=== PATIENT | male | born 1990 | race Hispanic/Latino ===

== ENCOUNTER 2024-09-01 23:47 | Emergency (ER) | payer SELFPAY ==
--- OUTSIDE RECORDS SUMMARY | 2024-09-01 23:50 | XMS REPORT | Continuity of Care Document ---
Author Name Unknown Address [address] [facility] [address] [id number] [facility] thconnect Address [address] [facility] [address] [place] [address] Care Team Providers Care Illustrator Set Name Role Phone Unavailable Unavailable Unavailable Encounters Start Date/Time End Date/Time Encounter Type Admission Type Attending Clinicians [facility] Facility Care Department Encounter ID Source 2024-07-05 13:34:12 2024-07-05 13:34:12 Outpatient [facility] 09 Ray Garza Gerry 2024-06-28 13:49:51 2024-06-28 13:49:51 Outpatient [facility] [id number] Ray Garza Gerry 2024-06-17 13:46:40 2024-06-17 13:46:40 Outpatient [facility] [id number] Ray Garza Gerry 2024-06-14 14:48:40 2024-06-14 14:48:40 Outpatient [facility] [id number] Ray Garza Gerry 2024-06-07 15:36:54 2024-06-07 15:36:54 Outpatient [facility] [id number] Ray Garza Gerry Results Test Description Test Time Test Comments Results Result Co mments Source CULTURE, URINE 2024-06-10 09:19:57 SPECIMEN NUMBER: [id number] CULTURE, URINE SPECIMEN NUMBER: [id number] SPECIMEN COMMENT: URINE SOURCE: URINE REPORT STATUS: FINAL FINAL REPORT: 06/10/2024 NO GROWTH HERPES SIMPLEX AB, [id number] 13:16:09* Test Item Value Reference Range Interpretation Comme nts HERPES SIMPLEX AB, IgM (test code = 62761) 0.47 INDEX SEE BELOW INTERPRETATION U NITS RANGE ----- ----- NEGATIVE INDEX <=0.89 EQUIVOCAL INDEX 0.90-1.09 POSITIVE INDEX >=1.10 AFP, TUMOR [id number] 05:49:54* Test Item Value Reference Range Interpretation Comme nts AFP, TUMOR MARKER (test code = 92318) 2.95 NG/ML <=8.30 UNLESS OTHERWISE INDICATED, ALL TESTING PERFORMED AT [facility] [address] [place] [address] LOAN INSPECTOR: YAHAIRA TELLO M.D. [place] NUMBER [id number] [facility] [place] [id number] HIV 1/2 4TH GEN, RFLX [id number] 03:41:22* Test Item Value Reference Range Interpretation Comme nts HIV 1/2 4TH GEN, RFLX CONF ( test code = 3514) NON-REACTIVE NON-REACTIVE HERPES SIMPLEX 1/2 AB, IgG [id number] 03:41:22* Test Item Value Reference Range Interpretation Comme nts HERPES SIMPLEX 1 AB, IgG (test code = 04522) 0.072 INDEX SEE BELOW INTERPRETATION U NITS RANGE ----- ----- NON-REACTIVE INDEX <1.000 REACTIVE INDEX >=1.000 HERPES SIMPLEX 2 AB, IgG (test code = 17569) 0.087 INDEX SEE BELOW INTERPRETATION U NITS RANGE ----- ----- NON-REACTIVE INDEX <1.000 REACTIVE INDEX >=1.000 [id number] 03:09:06* Test Item Value Reference Range Interpretation Comme nts RPR RESULT (test code = 3501) NON-REACTIVE NON-REACTIVE RPR TITER (test code = 3500) NOT INDIC. TITER NOT INDIC.
--- NOTE | 2024-09-02 00:02 | ER ---
Nurse's Notes [facility] Name: Sundeep Paz Age: 34 yrs Sex: Male : 1990 Arrival Date: 09/01/2024 Time: 23:47 Bed Waiting Private MD: Diagnosis: Otitis media, unspecified, left ear;Other otitis externa, left ear Presentation: 09/01 23:58 Chief complaint: Patient states: left ear pain X2 days. Coronavirus screen: Client kl denies travel out of the [place] in the last 14 days. At this time, the client does not indicate any symptoms associated with coronavirus-19. Ebola Screen: No symptoms or risks identified at this time. Initial Sepsis Screen: Does the patient meet any 2 criteria? No. Patient's initial sepsis screen is negative. Does the patient have a suspected source of infection? No. Patient's initial sepsis screen is negative. Risk Assessment: Do you want to hurt yourself or someone else?. Onset of symptoms was September 01, 2020. 23:58 Method Of Arrival: Ambulatory 23:58 Acuity: JAYE 5 kl Triage Assessment: 09/02 00:01 General: Appears in no apparent distress. uncomfortable, Behavior is anxious, fussy, kl restless. Pain: Complains of pain in left ear Pain does not radiate. EENT: Tympanic membrane reddened on left ear. Neuro: Floyd Agitation-Sedation Scale (RASS): +1 Restless Level of Consciousness is awake, alert, obeys commands, Oriented to person, place, time, situation. Cardiovascular: No deficits noted. Denies chest pain, shortness of breath, Capillary refill < 3 seconds Clubbing of nail beds is absent JVD is absent Patient's skin is warm and dry. Respiratory: No deficits noted. Airway is patent Respiratory effort is even, unlabored, Respiratory pattern is regular, symmetrical. GI: No deficits noted. No signs and/or symptoms were reported involving the gastrointestinal system. : No deficits noted. No signs and/or symptoms were reported regarding the genitourinary system. Derm: No deficits noted. No signs and/or symptoms reported regarding the dermatologic system. Skin is intact, is healthy with good turgor, Skin is dry, Skin is normal, Skin temperature is warm. Musculoskeletal: No deficits noted. No signs and/or symptoms reported regarding the musculoskeletal system. Circulation, motion, and sensation intact. Range of motion: intact in all extremities. Historical: - Allergies: 00:01 No Known Allergies; kl - Home Meds: 00:01 None [Active]; kl - PMHx: 00:01 None; kl - PSHx: 00:01 None; kl - Immunization history:: Adult Immunizations up to date. - Infectious Disease History:: Denies. - Social history:: Smoking status: Reported history of juuling and/or vaping. Patient uses alcohol, on a daily basis. Patient/guardian denies using street drugs. Screenin:03 [facility] ED Fall Risk Assessment (Adult) History of falling in the last 3 months, including since admission No falls in past 3 months (0 pts) Confusion or Disorientation No (0 pts) Intoxicated or Sedated No (0 pts) Impaired Gait No (0 pts) Mobility Assist Device Used No (0 pt) Altered Elimination No (0 pt) Score/Fall Risk Level 0 - 2 = Low Risk Oriented to surroundings, Maintained a safe environment, Educated pt \T\ family on fall prevention, incl call for assistance when getting out of bed, Assessed \T\ reinforced patient's understanding of fall precautions. Abuse screen: Denies threats or abuse. Denies injuries from another. Nutritional screening: No deficits noted. Tuberculosis screening: No symptoms or risk factors identified. Assessment: 00:03 General: see triage assessment. Vital Signs: 09/01 23:58 BP 170 / 94; Pulse 101; Resp 18 S; Temp 97.5(O); Pulse Ox 98% on R/A; Weight 81.65 kg (R); Height 5 ft. 9 in. (R); Pain 08/12; 23:58 Body Mass Index 26.58 (81.65 kg, 175.26 cm) 23:58 Pain Scale: Adult ED Course: 23:51 Patient arrived in ED. gm2 23:58 Mckenzie Choe FNP-C [facility]. kb 23:58 Arturo Kaye MD is Attending Physician. kb 09/02 00:01 Triage completed. kl 00:01 Arm band placed on right wrist. kl 00:03 Patient has correct armband on for positive identification. Family accompanied patient. kl 00:11 No provider procedures requiring assistance completed. Patient did not have IV access kl during this emergency room visit. Administered Medications: 00:10 Drug: HYDROcodone-acetaminophen PO 5 mg-325 mg 1 tabs PO once Route: PO; 00:10 Follow up: Response: No adverse reaction; Medication administered at discharge. 00:10 Drug: Amoxicillin-Clavulanate PO 875 mg PO once Route: PO; 00:10 Follow up: Response: No adverse reaction; Medication administered at discharge. Medication: 00:03 VIS not applicable for this client. Outcome: 00:01 Discharge ordered by . katharina 00:11 Discharged to home ambulatory, with family, 00:11 Condition: stable 00:11 Discharge instructions given to patient, Instructed on discharge instructions, follow up and referral plans. medication usage, Demonstrated understanding of instructions, follow-up care, medications, Prescriptions given X 2, 00:11 Patient left the ED. Signatures: Mckenzie Choe, TIMBER CRUISER-C GERTRUDE-Shara Hanks RN RN Ana Holman 2
--- NOTE | 2024-09-02 00:02 | EDPHYS ---
Physician Documentation [facility] Name: Sundeep Paz Age: 34 yrs Sex: Male : 1990 Arrival Date: 09/01/2024 Time: 23:47 Bed Waiting Private MD: ED Physician Arturo Kaye HPI: 09/02 00:16 This 34 yrs old Male presents to ER via Ambulatory with complaints of Ear kb Pain, Foreign Body In Ear. 00:16 Pt is a 34 year old female who presents for left ear pain that started yesterday. kb Denies fever. Aggravated by movement of ear. Denies drainage. Historical: - Allergies: 00:01 No Known Allergies; kl - Home Meds: 00:01 None [Active]; kl - PMHx: 00:01 None; kl - PSHx: 00:01 None; kl - Immunization history:: Adult Immunizations up to date. - Infectious Disease History:: Denies. - Social history:: Smoking status: Reported history of juuling and/or vaping. Patient uses alcohol, on a daily basis. Patient/guardian denies using street drugs. ROS: 00:14 Constitutional: As per HPI kb Exam: 00:14 Constitutional: This is a well developed, well nourished patient who is awake, alert, kb and in no acute distress. Head/Face: Normocephalic, atraumatic. Respiratory: Respirations even and unlabored. No increased work of breathing. Talking in full sentences Skin: Warm, dry with normal turgor. Normal color. MS/ Extremity: Pulses equal, no cyanosis. Neurovascular intact. Full, normal range of motion. Neuro: Awake and alert, GCS 15, oriented to person, place, time, and situation. 00:14 ENT: External ear(s): pain with movement, that is moderate, of the pinna of left ear, left ear lobe and left ear canal, Ear canal(s): erythema, that is moderate, of the left canal, TM's: fluid levels, on the left, Vital Signs: 09/01 23:58 BP 170 / 94; Pulse 101; Resp 18 S; Temp 97.5(O); Pulse Ox 98% on R/A; Weight 81.65 kg kl (R); Height 5 ft. 9 in. (R); Pain 10/10; 23:58 Body Mass Index 26.58 (81.65 kg, 175.26 cm) kl 23:58 Pain Scale: Adult MDM: 23:58 Medical Screening Exam initiated kb 09/02 00:15 Differential diagnosis: otitis media, otitis externa, ruptured TM, foreign body, acute kb otalgia. Data reviewed: vital signs, nurses notes. Historians other than the Patient: Family Member: family. Counseling: I had a detailed discussion with the patient and/or guardian regarding the historical points, exam findings, and any diagnostic results supporting the discharge/admit diagnosis, the need for outpatient follow up, a family practitioner, to return to the emergency department if symptoms worsen or persist or if there are any questions or concerns that arise at home. Administered Medications: 00:10 Drug: HYDROcodone-acetaminophen PO 5 mg-325 mg 1 tabs PO once Route: PO; 00:10 Follow up: Response: No adverse reaction; Medication administered at discharge. 00:10 Drug: Amoxicillin-Clavulanate PO 875 mg PO once Route: PO; 00:10 Follow up: Response: No adverse reaction; Medication administered at discharge. Disposition Summary: 09/02/24 00:01 Discharge Ordered Notes: Location: Home kb Condition: Stable kb Diagnosis - Otitis media, unspecified, left ear kb - Other otitis externa, left ear kb Followup: kb - With: Emergency Department - When: As needed - Reason: Worsening of condition Followup: kb - With: Private Physician - When: 2 - 3 days - Reason: Recheck today's complaints, Continuance of care, Re-evaluation by your physician Discharge Instructions: - Discharge Summary Sheet kb - Otitis Externa, [id number] kb - Otitis Media, Adult, [id number] kb Forms: - Medication Reconciliation Form kb - Antibiotic Education kb - Prescription Opioid Use kb - Patient Portal Instructions kb - Leadership Thank You Letter Prescriptions: - Amoxicillin 875 mg Oral Tablet - take 1 tablet ORAL route every 12 hours for 10 days; 20 tablet; Refills: 0, kb Product Selection Permitted - Ciprodex 0.3-0.1 % Otic drops, suspension - instill 4 drops OTIC route every 12 hours for 7 days , for ears ONLY; 1 unit; kb Refills: 0, Product Selection Permitted Signatures: Mckenzie Choe, ELECTRONIC ORGAN TECHNICIAN-C ELECTRONIC ORGAN TECHNICIAN-Ckb Shara Pierre, RN RN kl
[2024-09-02] MEDS ORDERED: HYDROCODONE/APAP 5/325 MG TAB ONE (00:07)
[2024-09-02] MEDS ORDERED: AMOX/K CLAV 875 MG TAB ONE (00:07)
[2024-09-02 00:17] VITALS: BP 170/94; TEMP 97.5; O2SAT 98
== END 2024-09-02 00:11 | disposition home or self-care (01) ==
LOC: ER 23:47
DX: H66.92 Otitis media, unspecified, left ear (principal); H60.8X2 Other otitis externa, left ear
CPT/HCPCS: 99283